=== PATIENT | female | born 1930 | race Two or more races ===

== ENCOUNTER 2017-07-28 13:29 | Outpatient (CLI) | payer OTHER ==
[~2017-07-28 13:29] MED LIST: CALTRATE 600600 MG PO; COZAAR25 MG PO; DICLOFENAC POTA50 MG PO; FOSAMAX5 MG; GLIMEPIRIDE4 MG PO; GLYSET50 MG PO; METOPROLOL SUCC25 MG; NABUMETONE500 MG PO; NEURONTIN300 MG PO; PERCOCET 5/3251 TAB PO; SYNTHROID125 MCG; TORADOL30 MG IM; VASOFLEX SOFTG1 EACH PO; VITAMIN D400 UNI2 PO; ZOCOR20 MG PO; ZYRTEC10 MG PO; [UNRECOGNIZED DRUG - OTHER]
== END 2017-07-28 13:59 | disposition home or self-care (01) ==
LOC: RAD 13:29
DX: M25.561 Pain in right knee (principal); M25.562 Pain in left knee; M81.0 Age-related osteoporosis without current pathological fracture
CPT/HCPCS: 73718

== ENCOUNTER 2017-10-20 11:04 | Outpatient (CLI) | payer OTHER | END 2017-10-20 11:18 | disposition home or self-care (01) | LOC: RAD 501 11:04 | DX: M25.561 Pain in right knee (principal) ==

== ENCOUNTER 2017-12-12 11:14 | Outpatient (CLI) | payer OTHER | END 2017-12-12 16:30 | disposition home or self-care (01) | LOC: RAD 11:14 → MAMO-SONO 11:14 → RAD 16:30 | DX: R07.89 Other chest pain (principal); Z12.31 Encounter for screening mammogram for malignant neoplasm of breast; Z87.898 Personal history of other specified conditions; N64.4 Mastodynia ==

== ENCOUNTER 2018-01-06 07:17 | Outpatient (CLI) | payer OTHER | END 2018-01-06 07:35 | disposition home or self-care (01) | LOC: NUCLEAR 07:17 | DX: I11.9 Hypertensive heart disease without heart failure (principal); I25.10 Atherosclerotic heart disease of native coronary artery without angina pectoris; E11.9 Type 2 diabetes mellitus without complications; R07.89 Other chest pain | CPT/HCPCS: 78452; 93017; A9500; J0153 ==

== ENCOUNTER 2018-11-06 13:42 | Outpatient (CLI) | payer OTHER | END 2018-11-06 13:47 | disposition home or self-care (01) | LOC: SONOGRAMA 13:42 → MAMO-SONO 13:45 → SONOGRAMA 13:47 | DX: E03.8 Other specified hypothyroidism (principal); E04.2 Nontoxic multinodular goiter ==